=== PATIENT | female | born 1970 | race Hispanic/Latino ===

== ENCOUNTER 2019-12-27 22:19 | Inpatient (IN) | payer OTHER ==
[2019-12-28 00:52] LABS: Basophils # (Auto) 0.1 K/mm3 (0.0-0.1); Basophils % (Auto) 0.8 % (0.0-1.8); Eosinophils # (Auto) 0.3 K/mm3 (0.0-0.4); Eosinophils % (Auto) 1.9 % (0.0-4.3); Hematocrit 42.1 % (30.3-42.9); Hemoglobin 14.1 gm/dl (10.1-14.3); Lymphocytes # (Auto) 2.6 K/mm3 (1.2-5.4); Lymphocytes % (Auto) 19.2 % (13.4-35.0); Mean Corpuscular HGB Conc 33 % (30-34); Mean Corpuscular Volume 87 fl (79-97); Monocytes # (Auto) 0.8 K/mm3 (0.0-0.8); Monocytes % (Auto) 5.6 % (0.0-7.3); Platelet Count 377 K/mm3 (140-440); Red Blood Count 4.83 M/mm3 (3.65-5.03); Red Cell Distribution Width 14.6 % (13.2-15.2)
[2019-12-28 01:11] LABS: Alanine Aminotransferase 16 units/L (7-56); Albumin 3.8 g/dL (3.9-5); BUN/Creatinine Ratio 16; Blood Urea Nitrogen 13 mg/dL (7-17); Calcium 9.4 mg/dL (8.4-10.2); Hemolysis Index 2
[2019-12-28 01:55] LABS: Bilirubin,Urine NEG (Negative); Blood,Urine NEG (Negative); Color,Urine Amber (Yellow); Hyaline Casts,Urine 4 /LPF; Mucus,Urine 3+ /HPF
[2019-12-28] MEDS ORDERED: fentaNYL 100 MCG/2 ML INJ IV ONE ×2 (03:42→04:48)
[2019-12-28] MEDS ORDERED: ONDANSETRON 4 MG/2 ML INJ IV ONE (03:42)
--- NOTE | 2019-12-28 03:56 | Emergency Department Report ---
HPI - General Chief Complaint: Abdominal Pain Time Seen by Provider: 12/28/19 03:35 - HPI HPI: Room 17 The patient is a 49-year-old female present with a chief complaint of abdominal pain. The patient states she returned to the emergency department because her abdominal pain returned. The patient was seen here 3 days ago and diagnosed with pancreatitis. Patient states her pain improved and she went home. The patient states today the pain returned and she gives it a score of 10/10. Patient admits to nausea and vomiting. Patient denies diarrhea or fever. The patient states 3 days ago was the first time she was diagnosed with pancreatitis in her life ED Past Medical Hx - Past Medical History Previous Medical History?: Yes Additional medical history: Obesity, Pancreatitis - Surgical History Past Surgical History?: Yes Hx Cholecystectomy: Yes - Family History Family history: no significant - Social History Smoking Status: Never Smoker Substance Use Type: None - Medications Home Medications: Home Medications Medication Instructions Recorded Confirmed Last Taken Type Ciprofloxacin HCl [Ciprofloxacin 500 mg PO BID 7 Days #14 tablet 12/26/19 Unknown Rx TAB] Omeprazole 40 mg PO DAILY #30 capsule. 12/26/19 Unknown Rx metroNIDAZOLE [Flagyl] 500 mg PO Q8HR 7 Days #21 tablet 12/26/19 Unknown Rx traMADoL [Ultram] 50 mg PO Q4HR PRN #30 tablet 12/26/19 Unknown Rx ED Review of Systems ROS: Stated complaint: ABDOMINAL PAIN X 3 DAYS Other details as noted in HPI Constitutional: denies: fever Respiratory: no symptoms reported Endocrine: no symptoms reported Gastrointestinal: abdominal pain, nausea, vomiting. denies: diarrhea Physical Exam - Physical Exam Vital Signs: Vital Signs 12/27/19 23:56 Temperature 97.5 F L Pulse Rate 83 Respiratory 18 Rate Blood Pressure 133/90 O2 Sat by Pulse 97 Oximetry Physical Exam: GENERAL: The patient is well-developed well-nourished female lying on stretcher not appearing to be in acute distress. [] HEENT: Normocephalic. Atraumatic. Extraocular motions are intact. Patient has moist mucous membranes. NECK: Supple. Trachea midline CHEST/LUNGS: Clear to auscultation. There is no respiratory distress noted. HEART/CARDIOVASCULAR: Regular. There is no tachycardia. There is no gallop rub or murmur. ABDOMEN: Abdomen is soft, with discomfort to palpation in the right side of the abdomen. No rebound or guarding. Patient has normal bowel sounds. There is no abdominal distention. SKIN: There is no rash. There is no edema. There is no diaphoresis. NEURO: The patient is awake, alert, and oriented. The patient is cooperative. The patient has normal speech MUSCULOSKELETAL: There is no evidence of acute injury. ED Course Vital Signs 12/27/19 23:56 Temperature 97.5 F L Pulse Rate 83 Respiratory 18 Rate Blood Pressure 133/90 O2 Sat by Pulse 97 Oximetry ED Medical Decision Making - Lab Data Result diagrams: 12/28/19 00:21 12/28/19 00:21 Laboratory Tests 12/28/19 12/28/19 12/28/19 00:05 00:21 00:21 WBC 13.5 H RBC 4.83 Hgb 14.1 Hct 42.1 MCV 87 MCH 29 MCHC 33 RDW 14.6 Plt Count 377 Lymph % (Auto) 19.2 [place] % (Auto) 5.6 Eos % (Auto) 1.9 Baso % (Auto) 0.8 Lymph # 2.6 [place] # 0.8 Eos # 0.3 Baso # 0.1 Seg Neutrophils % 72.5 H Seg Neutrophils # 9.8 H Sodium 139 Potassium 3.6 Chloride 98.9 Carbon Dioxide 26 Anion Gap 18 BUN 13 Creatinine 0.8 Estimated GFR > 60 BUN/Creatinine Ratio 16 Glucose 108 H Calcium 9.4 Total Bilirubin 0.40 AST 15 ALT 16 Alkaline Phosphatase 111 Total Protein 7.6 Albumin 3.8 L Albumin/Globulin Ratio 1.0 Lipase 24 HCG, Qual Urine Color [place] Urine Turbidity Clear Urine pH 5.0 Ur Specific [place] 1.032 H Urine Protein 100 mg/dl Urine Glucose (UA) Neg Urine Ketones Tr Urine Blood Neg Urine Nitrite Neg Urine Bilirubin Neg Urine Urobilinogen 4.0 Ur Leukocyte Esterase Sm Urine WBC (Auto) 5.0 Urine RBC (Auto) 4.0 U Epithel Cells (Auto) 9.0 Hyaline Casts 4 Urine Mucus 3+ 12/28/19 00:21 WBC RBC Hgb Hct MCV MCH MCHC RDW Plt Count Lymph % (Auto) [place] % (Auto) Eos % (Auto) Baso % (Auto) Lymph # [place] # Eos # Baso # Seg Neutrophils % Seg Neutrophils # Sodium Potassium Chloride Carbon Dioxide Anion Gap BUN Creatinine Estimated GFR BUN/Creatinine Ratio Glucose Calcium Total Bilirubin AST ALT Alkaline Phosphatase Total Protein Albumin Albumin/Globulin Ratio Lipase HCG, Qual Negative Urine Color Urine Turbidity Urine pH Ur Specific [place] Urine Protein Urine Glucose (UA) Urine Ketones Urine Blood Urine Nitrite Urine Bilirubin Urine Urobilinogen Ur Leukocyte Esterase Urine WBC (Auto) Urine RBC (Auto) U Epithel Cells (Auto) Hyaline Casts Urine Mucus - Medical Decision Making Patient had CAT scan from 3 days ago that revealed moderate pancreatitis. - Differential Diagnosis Acute pancreatitis Critical care attestation.: If time is entered above; I have spent that time in minutes in the direct care of this critically ill patient, excluding procedure time. ED Disposition Clinical Impression: Pancreatitis, Acute abdominal pain Disposition: OP ADMIT IP TO THIS HOSP Is pt being admited?: Yes Does the pt Need Aspirin: No Condition: Fair Instructions: Abdominal Pain (ED) Referrals: REID DANEILS MD [Primary Care Provider] - 3-5 Days Time of Disposition: 05:23 (Hospitalist paged (Dr Herr))
[2019-12-28] MEDS ORDERED: METOCLOPRAMIDE 10 MG/2 ML INJ IV ONE (05:22)
[2019-12-28] MEDS ORDERED: ACETAMINOPHEN 325 MG TAB PO PRN (06:32)
--- NOTE | 2019-12-28 06:40 | History and Physical Report ---
History of Present Illness Date of examination: 12/28/19 Date of admission: 12/28/2019 Chief complaint: Abdominal pain History of present illness: 49-year-old white female presenting to the emergency room today complaining of abdominal pain. Patient was seen in the emergency room about 3 days ago and was diagnosed with pancreatitis and was sent home from the emergency room. She felt a little better when she got home however pain was said to have started again t nichole. She has been having nausea and vomiting. She denies any diarrhea, denies any fever or chills, denies any chest pain or shortness of breath, denies any melena or bright red blood per rectum. Patient denies any sick contacts and no recent travel. On a scale of 10 abdominal pain was said to be 10/10 in severity and located towards the upper abdomen. There is no known relieving or exacerbat ing factor. Patient denies any history of alcohol abuse and no illicit drug use. Past History Past Medical History: No medical history Past Surgical History: cholecystectomy Social history: no significant social history Family history: no significant family history Medications and Allergies Allergies Allergy/AdvReac Type Severity Reaction Status Date / Time Fish Containing Products Allergy Shortness Verified 12/25/19 17:06 of Breath Home Medications Medication Instructions Recorded Confirmed Last Taken Type Ciprofloxacin HCl [Ciprofloxacin 500 mg PO BID 7 Days #14 tablet 12/26/1912/09 Unknown Rx TAB] Omeprazole 40 mg PO DAILY #30 capsule. 12/26/19 12/28/19 Unknown Rx metroNIDAZOLE [Flagyl] 500 mg PO Q8HR 7 Days #21 tablet 12/26/19 12/28/19 Unknown Rx traMADoL [Ultram] 50 mg PO Q4HR PRN #30 tablet 12/26/19 12/28/19 Unknown Rx Active Meds: Active Medications Acetaminophen (Tylenol) 650 mg PO Q4H PRN PRN Reason: Pain MILD(1-3)/Fever >100.5/ARMSTRONG Sodium Chloride (Nacl 0.9% 1000 Ml) 1,000 mls @ 150 mls/hr IV DIRECT LE Morphine Sulfate (Morphine) 2 mg IV Q4H PRN PRN Reason: Pain, Moderate (4-6) Ondansetron HCl (Zofran) 4 mg IV Q8H PRN PRN Reason: Nausea And Vomiting Sodium Chloride (Sodium Chloride Flush Syringe 10 Ml) 10 ml IV BID LE Sodium Chloride (Sodium Chloride Flush Syringe 10 Ml) 10 ml IV PRN PRN PRN Reason: LINE FLUSH Review of Systems Constitutional: no fever, no chills Ears, nose, mouth and throat: no nasal congestion, no sore throat Cardiovascular: no chest pain, no palpitations Respiratory: no cough, no shortness of breath Gastrointestinal: abdominal pain, nausea, vomiting, no diarrhea, no constipation, no BRBPR, no melena Genitourinary Female: no pelvic pain, no flank pain, no dysuria Musculoskeletal: no neck pain, no low back pain Integumentary: no rash, no pruritis Neurological: no headaches, no confusion Psychiatric: no anxiety, no confusion Exam - Constitutional Vitals: Temp Pulse Resp BP Pulse Ox 97.5 F L 62 13 133/69 94 12/27/19 23:56 12/28/19 06:15 12/28/19 06:15 12/28/19 06:30 12/28/19 06:30 General appearance: Present: no acute distress, well-nourished, obese - EENT Eyes: Present: PERRL, EOM intact ENT: hearing intact, clear oral mucosa, dentition normal - Neck Neck: Present: supple, normal ROM - Respiratory Respiratory effort: normal Respiratory: bilateral: CTA - Cardiovascular Rhythm: regular Heart Sounds: Present: S1 & S2. Absent: gallop, systolic murmur, diastolic murmur, rub - Extremities Extremities: no ischemia, pulses intact, pulses symmetrical, No edema, Full ROM - Abdominal General gastrointestinal: Present: soft, tender, non-distended, normal bowel sounds. Absent: mass Localized gastrointestinal: tender: epigastric periumbilical - Integumentary Integumentary: Present: clear, warm, dry - Musculoskeletal Musculoskeletal: strength equal bilaterally - Psychiatric Psychiatric: appropriate mood/affect, intact judgment & insight, memory intact, cooperative - Neurologic Neurologic: CNII-XII intact, no focal deficits, moves all extremities Results - Labs CBC & Chem 7: 12/28/19 00:21 12/28/19 00:21 Labs: Abnormal lab results 12/28/19 12/28/19 12/28/19 Range/Units 00:05 00:21 00:21 WBC 13.5 H (4.5-11.0) K/mm3 Seg Neutrophils % 72.5 H (40.0-70.0) % Seg Neutrophils # 9.8 H (1.8-7.7) K/mm3 Glucose 108 H (65-100) mg/dL Albumin 3.8 L (3.9-5) g/dL Ur Specific [place] 1.032 H (1.003-1.030) Assessment and Plan - Patient Problems (1) Pancreatitis Current Visit: Yes Status: Acute Plan to address problem: Patient admitted and placed n.p.o. He has been placed on IV fluid. Will monitor lipase level. (2) Acute abdominal pain Current Visit: Yes Status: Acute Plan to address problem: Possibly secondary to the acute pancreatitis. Will continue IV analgesic medication as needed. (3) DVT prophylaxis Current Visit: Yes Status: Acute Plan to address problem: Patient placed on subcutaneous Lovenox. (4) Full code status Current Visit: Yes Status: Acute
[2019-12-28] MEDS ORDERED: SODIUM CHLORIDE 0.9% 1000 ML 1,000 ML ONE (10:35)
[2019-12-28] MEDS: SODIUM CHLORIDE 0.9% 1000 ML 1,000 ML IV SCH ×2 (10:50→18:43)
--- NOTE | 2019-12-28 16:54 | Event Note ---
Date: 12/28/19 49-year-old female presents with abdominal pain x3 days nausea and vomiting left-sided abdominal pain diagnosed with acute pancreatitis. Patient improved today with initial n.p.o. status. Asking for food. Walking around the ER without much difficulty. Patient states abdominal pain is resolved just has upset stomach now. Patient admitted for acute pancreatitis continue n.p.o. status. Aggressive supportive care aggressive hydration pain control observation. Proton pump inhibitor Patient stable
[2019-12-28] MEDS: ONDANSETRON 4 MG/2 ML INJ IV PRN (18:39)
[2019-12-28] MEDS: ENOXAPARIN 40 MG/0.4 ML INJ SUB-Q SCH (21:35)
[2019-12-29] MEDS: MORPHINE 2 MG/1 ML INJ IV PRN ×3 (00:20→23:24)
[2019-12-29] MEDS: ONDANSETRON 4 MG/2 ML INJ IV PRN ×3 (00:20→19:05)
[2019-12-29] MEDS: SODIUM CHLORIDE 0.9% 1000 ML 1,000 ML IV SCH ×3 (04:37→23:25)
[2019-12-29 06:35] LABS: Basophils # (Auto) 0.1 K/mm3 (0.0-0.1); Basophils % (Auto) 0.8 % (0.0-1.8); Eosinophils # (Auto) 0.3 K/mm3 (0.0-0.4); Eosinophils % (Auto) 3.3 % (0.0-4.3); Hematocrit 36.7 % (30.3-42.9); Hemoglobin 12.5 gm/dl (10.1-14.3); Lymphocytes # (Auto) 3.1 K/mm3 (1.2-5.4); Lymphocytes % (Auto) 36.8 % (13.4-35.0); Mean Corpuscular HGB Conc 34 % (30-34); Mean Corpuscular Volume 86 fl (79-97); Monocytes # (Auto) 0.5 K/mm3 (0.0-0.8); Monocytes % (Auto) 5.8 % (0.0-7.3); Platelet Count 313 K/mm3 (140-440); Red Blood Count 4.26 M/mm3 (3.65-5.03); Red Cell Distribution Width 14.6 % (13.2-15.2)
[2019-12-29 06:42] LABS: INR 1.07 (0.87-1.13)
[2019-12-29 06:48] LABS: BUN/Creatinine Ratio 17; Blood Urea Nitrogen 10 mg/dL (7-17); Calcium 8.4 mg/dL (8.4-10.2); Hemolysis Index 1
--- NOTE | 2019-12-29 18:19 | Progress Note ---
Assessment and Plan - Patient Problems (1) Acute abdominal pain Current Visit: Yes Status: Acute Plan to address problem: Abdominal pain secondary to pancreatitis. No evidence of infection. Only pain with deep palpation has resolved continue supportive care pain control. Aggressive IV volume hydration. (2) DVT prophylaxis Current Visit: Yes Status: Acute (3) Full code status Current Visit: Yes Status: Acute (4) Pancreatitis Current Visit: Yes Status: Acute Plan to address problem: Patient acute pancreatitis. Exact etiology unknown. Checking triglycerides. Patient does not drink. Will further evaluate for possible stone but not visualized in this time. Did not tolerate clear liquid diet. Follow GI con sult. Recommendations. Subjective Date of service: 12/29/19 Principal diagnosis: Acute pancreatitis Interval history: Patient is attempted to tolerate clears today. Had left-sided abdominal pain with nausea. This was on clear liquid diet. Patient not able to tolerate meals for acute pancreatitis. Will resume n.p.o. status. Objective - Constitutional Vitals: Vital Signs - 12hr 12/29/19 12/29/19 12/29/19 08:04 11:52 16:21 Temperature 98.2 F 97.9 F 97.9 F Pulse Rate 60 57 L 61 Respiratory 18 18 18 Rate Blood Pressure 137/67 139/75 153/90 O2 Sat by Pulse 86 90 95 Oximetry General appearance: Present: no acute distress, well-nourished - EENT Eyes: PERRL, EOM intact ENT: hearing intact, clear oral mucosa Ears: bilateral: normal - Neck Neck: supple, normal ROM - Respiratory Respiratory effort: normal Respiratory: bilateral: CTA - Breasts Breasts: normal - Cardiovascular Rhythm: regular Heart Sounds: Present: S1 & S2. Absent: gallop, rub Extremities: pulses intact, No edema, normal color, Full ROM - Gastrointestinal General gastrointestinal: Present: soft, non-tender, non-distended, normal bowel sounds, other (Left lower quadrant pain upon deep palpation.) - Genitourinary Female genitourinary: normal - Integumentary Integumentary: clear, warm, dry - Musculoskeletal Musculoskeletal: 1, strength equal bilaterally - Neurologic Neurologic: moves all extremities - Psychiatric Psychiatric: memory intact, appropriate mood/affect, intact judgment & insight - Labs CBC & Chem 7: 12/29/19 05:29 12/29/19 05:29 Labs: Abnormal lab results 12/29/19 12/29/19 Range/Units 05:29 05:29 Lymph % (Auto) 36.8 H (13.4-35.0) % Creatinine 0.6 L (0.7-1.2) mg/dL
[2019-12-29] MEDS: ENOXAPARIN 40 MG/0.4 ML INJ SUB-Q SCH (21:47)
[2019-12-30] MEDS: ONDANSETRON 4 MG/2 ML INJ IV PRN ×2 (03:59→21:08)
[2019-12-30] MEDS: SODIUM CHLORIDE 0.9% 1000 ML 1,000 ML IV SCH ×3 (06:46→19:13)
[2019-12-30] MEDS: MORPHINE 2 MG/1 ML INJ IV PRN ×2 (07:38→07:44)
--- NOTE | 2019-12-30 15:54 | Progress Note ---
Assessment and Plan (1) Acute abdominal pain Current Visit: Yes Status: Acute Plan to address problem: Abdominal pain secondary to pancreatitis. No evidence of infection. Only pain with deep palpation has resolved continue supportive care pain control. Aggressive IV volume hydration. (2) DVT prophylaxis Current Visit: Yes Status: Acute (3) Full code status Current Visit: Yes Status: Acute (4) Pancreatitis Current Visit: Yes Status: Acute Plan to address problem: Patient acute pancreatitis. Exact etiology unknown. Checking triglycerides. Patient does not drink. Will further evaluate for possible stone but not visualized in this time. Did not tolerate clear liquid diet. Follow GI consult. Recommendations. 12/29: will advance diet today. if tolerate then will d/c home tomorrow Subjective Date of service: 12/30/19 Principal diagnosis: Acute pancreatitis Objective - Constitutional Vitals: Vital Signs - 12hr 12/30/19 12/30/19 12/30/19 03:58 07:00 12:00 Temperature 98.0 F 97.2 F L 98 F Pulse Rate 58 L 52 L 52 L Respiratory 16 97 H 20 Rate Blood Pressure 168/95 Blood Pressure 147/83 139/76 [Right] O2 Sat by Pulse 98 20 L 98 Oximetry - Labs CBC & Chem 7: 12/29/19 05:29 12/29/19 05:29
[2019-12-30] MEDS: ENOXAPARIN 40 MG/0.4 ML INJ SUB-Q SCH (21:07)
[2019-12-31] MEDS: SODIUM CHLORIDE 0.9% 1000 ML 1,000 ML IV SCH (01:40)
--- NOTE | 2019-12-31 13:15 | Discharge Summary ---
Providers - Providers Date of Admission: 12/28/19 05:46 Date of discharge: 12/31/19 Attending physician: VAZQUEZ DOMINIQUE [facility] Condition: Fair Disposition: DC-01 TO HOME OR SELFCARE Time spent for discharge: 34 minutes Core Measure Documentation - Palliative Care Palliative Care/ Comfort Measures: Not Applicable - Core Measures Any of the following diagnoses?: none Exam - Constitutional Vitals: Temp Pulse Resp BP Pulse Ox 98.1 F 60 20 146/73 93 12/31/19 11:00 12/31/19 11:00 12/31/19 11:00 12/31/19 11:00 12/31/19 11:00 Plan Activity: advance as tolerated Weight Bearing Status: Weight Bear as Tolerated Diet: advance as tolerated Follow up with: AMRIT CHOIUNION MD DAY [Primary Care Provider] - 3-5 Days VINNY DEL RIO MD [Staff Physician] - 7 Days
[2019-12-31 15:50] VITALS: BP 137/70
== END 2019-12-31 16:34 | disposition home or self-care (01) | DRG 439 ==
LOC: ED 22:19 → OBSVTOIN 12-28 05:46 → 4A 12-28 05:46 → UNDOADMOB 12-28 08:03 → 4A 12-28 17:40
PROVIDERS: ADMIT Internal Medicine Geriatric Medicine; ATTEND Internal Medicine
DX: K85.90 Acute pancreatitis without necrosis or infection, unspecified (principal); Z68.42 Body mass index [BMI] 45.0-49.9, adult; E66.9 Obesity, unspecified; Z90.49 Acquired absence of other specified parts of digestive tract; Z79.899 Other long term (current) drug therapy
CPT/HCPCS: 36415; 80048; 80053; 81001; 83690; 84703; 85025; 85610; G0378; J1650; J2270; J2405; J2765; J3010; J7030